=== PATIENT | male | born 1960 | race Two or more races ===

== ENCOUNTER 2019-02-03 07:14 | Day surgery (SDC) | payer OTHER ==
--- NOTE | 2019-02-01 22:09 | Pre-Procedure Note/Attestation ---
Pre-Procedure Note/Attestation Complete Prior to Procedure Planned Procedure: not applicable Procedure Narrative: Closed reduction nasal fracture Indications for Procedure Pre-Operative Diagnosis: Nasal fracture 01/27/19 when he fell off treadmill while at work. Attestation I attest that I discussed the nature of the procedure; its benefits; risks and complications; and alternatives (and the risks and benefits of such alternatives ), prior to the procedure, with the patient (or the patient's legal manufacturers representative). I attest that, if there was a reasonable possibility of needing a blood transfusion, the patient (or the patient's legal manufacturers representative) was given the [place] [facility] [employer] [facility] standardized written summary, pursuant to the Carmine Okay Blood Safety Act ([place] Health and Safety Code # 1645, as amended). I attest that I re-evaluated the patient just prior to the surgery and that there has been no change in the patient's H&P. Dejon Abdul MD Feb 01, 2019 22:09
--- NOTE | 2019-02-01 22:11 | Brief Operative Note ---
Immediate Post Operative Note Operative Note Chief Complaint: Acute nasal fracture Pre-op Diagnosis: Nasal fracture 01/27/19 when he fell off treadmill while at work. Procedure: Closed reduction nasal fracture Post-op Diagnosis: same as pre-op Surgeon: Dejon Abdul Chip Bin Conveyor Tender: none Additional Surgeons: none Anesthesiologist: Elpidio Anesthesia: MAC, moderate sedation Specimen: none Complications: none Condition: stable Fluids: D5LR Estimated Blood Loss: minimal Drains: none Packing: Stamberger nasal gel Implant(s) used?: No Dejon Abdul MD Feb 01, 2019 22:11
--- NOTE | 2019-02-01 22:21 | Discharge Instructions ---
Discharge Instructions Discharge Instructions Follow up with: 02/10/19 Diet: regular Resume Normal Activity?: No Activity: light activity Pneumonia Vaccine: pt refused vaccine Influenza Vaccine (Aug to Jan): pt refused vaccine Follow Up Orders Pt has printed pre op and post op instructions that we reviewed at his last visit and I gave to him. He also has his post op meds-AMox and [employer]. Return to Work/School on: Feb 17, 2019 Special Instructions ice to nose x 48 hours For Surgical Patients Dressing Care: may change For Congestive Heart Failure Reminder Report to your physician any weight gain of 5 pounds or more in one week. Dejon Abdul MD Feb 01, 2019 22:21
--- NOTE | 2019-02-01 22:45 | History and Physical ---
History & Physical (DB) History & Physical History & Physical Chief Complaint: Acute nasal fracture secondary to falling off treadmill at work. Reason for Hospitalization: outpt. surgery under IV sedation for a closed reduction of nasal fracture. History obtained from: Chart and Patient HPI: is a 58 year old male who presents with the above noted nasal fracture . 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 Smoking status: never Smokeless tobacco: never Alcohol use: social lite Drug use:none Family History: unremarkable Allergies: NKDA Medications:none Review of Symptoms: General ROS: no weight loss or fever Psychological ROS: no depression or mood changes, no memory loss Ophthalmic ROS: no visual changes or eye irritation ENT ROS: no nasal congestion, hearing loss, dizziness, DOES HAVE NASAL DEFORMITY CONSISTENT WITH DOI-SIDE OF NOSE CAVED N. Allergy and Immunology ROS: no allergic symptoms or urticaria Hematological and Lymphatic ROS: no swollen glands, unusual bleeding or bruising Endocrine ROS: no polyuria, polydipsia, weight changes, temperature intolerance Respiratory ROS: no cough, shortness of breath, or wheezing Cardiovascular ROS: no chest pain or dyspnea on exertion Gastrointestinal ROS: no abdominal pain, change in bowel habits, or black or bloody stools Musculoskeletal ROS: no myalgias or arthralgias Neurological ROS: no TIA or stroke symptoms Dermatological ROS: no new or changing skin lesions, rashes or pruritis Physical Exam Vitals: Ht-70 inches, Wt-170 lbs, BP 120/80, HR 70, RR 12 General appearance: alert, cooperative, no distress, appears stated age Head: Normocephalic, without obvious abnormality, atraumatic Eyes: conjunctivae/corneas clear. PERRL, EOM's intact. Nose: DOES HAVE NASAL DEFORMITY CONSISTENT WITH DOI-SIDE OF NOSE CAVED N. Throat: Lips, mucosa, and tongue normal. Teeth and gums normal Neck: supple, symmetrical, trachea midline, no adenopathy, thyroid: not enlarged, symmetric, no tenderness/mass/nodules, no carotid bruit and no JVD Lungs: clear to auscultation bilaterally Heart: regular rate and rhythm, S1, S2 normal, no murmur, click, rub or gallop Abdomen: soft, non-tender. Bowel sounds normal. No masses, no organomegaly Extremities: extremities normal, atraumatic, no cyanosis or edema Pulses: 2+ and symmetric Skin: Skin color, texture, turgor normal. No rashes or lesions Neurologic: Grossly normal Laboratories: none Estimated:5-10 minutes surgeon time Assessment/Problem List: Acute closed nasal fracture consistent with DOI. Plan:Closed reduction nasal fracture under IV sedation. DVT Prophylaxis: scd Code status: full Disposition: Once the patient is stable to leave the hospital, I anticipate the patient will likely be discharged to the following environment I spent 70 minutes on this patient's case, and minutes was dedicated to counseling and/or care coordination. Case was discussed with Time of note may not reflect time of encounter. Dejon Abdul MD Feb 01, 2019 22:45
[~2019-02-03] VITALS: Ht 177.8 cm; Wt 79.4 kg
[2019-02-03] VITALS (10 sets, daily range): BP systolic 120–141; BP diastolic 75–96
[2019-02-03] MEDS ORDERED: ceFAZolin sod 1 GM in D5W 55 ML IV ONE (07:15)
[2019-02-03] MEDS ORDERED: Dexamethasone 4mg/ml vial IVP ONE (07:30)
[2019-02-03] MEDS ORDERED: PRILOSEC OTC20 MG ORAL (07:37)
[2019-02-03] MEDS ORDERED: CHOLESTYRAMINE P4 GM ORAL (07:37)
[2019-02-03] MEDS ORDERED: fentaNYL 100 mcg/2 mL IV ONE (08:54)
[2019-02-03] MEDS ORDERED: Lidocaine 1% MPF 10mg/ml 5ml ONE (08:59)
[2019-02-03] MEDS ORDERED: Sterile Water Irrig 1000ml IRRIG ONE (09:00)
[2019-02-03] MEDS ORDERED: LR 1000ml ONE (09:00)
[2019-02-03] MEDS ORDERED: NS Irrig 1000ml ONE (09:00)
[2019-02-03] MEDS ORDERED: Bupivacaine w/Epi 0.5% 30ml Vial INJ ONE (09:01)
[2019-02-03] MEDS ORDERED: Cocaine HCl 4% 4ml vial TOPIC ONE (09:01)
[2019-02-03] MEDS ORDERED: Lidocaine 1% 10mg/ml/Epi 0.005mg/ml 30ml vial INJ ONE (09:01)
[2019-02-03] MEDS ORDERED: LR 1000ml 1,000 ML IVLG SCH (09:16)
--- NOTE | 2019-02-03 09:24 | Anethesia Preoperative Eval ---
Anesthesia Pre-op PMH/ROS General Date of Evaluation: Feb 03, 2019 Time of Evaluation: 08:52 Anesthesiologist: Adriel ASA Score: ASA 2 Mallampati Score Class I : Soft palate, uvula, fauces, pillars visible Class II: Soft palate, uvula, fauces visible Class III: Soft palate, base of uvula visible Class IV: Only hard plate visible Mallampati Classification: Class II Surgeon: Franko Diagnosis: Nasla Fracture Surgical Procedure: Closed Reduction Nasal Fracture Anesthesia History: none Family History: no anesthesia problems Allergies: Coded Allergies: No Known Allergies (Unverified , 02/03/19) Medications: see eMAR Patient NPO?: Yes Past Medical History Gastrointestinal/Genitourinary: Reports: GERD, other - Crohns Disease, Prostate CA PSxH Narrative: Colon Resection, Prostatectomy, R Hand, R knee Sx, Cervical SX Anesthesia Pre-op Phys. Exam Physician Exam Last Vital Signs Date Time Temp Pulse Resp B/P (MAP) Pulse Ox O2 Delivery O2 Flow Rate FiO2 02/03/19 07:38 97.0 47 18 120/75 100 Room Air Constitutional: NAD Neurologic: CN 2-12 intact Cardiovascular: RRR Respiratory: CTA Gastrointestinal: S/NT/ND Airway Exam Mallampati Score: Class II MO: full ROM: full Teeth: missing, intact Anesthesia Pre-op A/P Risk Assessment & Plan Assessment: ASA 2 Plan: GA Status Change Before Surgery: No Pre-Antibiotics Dru Gram Ancef IV Given Within 1 Hr of Incision: Yes Time Given: 09:01 Hammad Morel MD Feb 03, 2019 09:24
--- NOTE | 2019-02-03 09:25 | 48 Hour Post Anesthesia Eval ---
Post Anesthesia Evaluation Procedure: Closed Reduction Nasal Fracture Date of Evaluation: Feb 03, 2019 Time of Evaluation: 11:53 Blood Pressure Systolic: 118 0: 72 Pulse Rate: 62 Respiratory Rate: 18 Temperature (Fahrenheit): 98.2 O2 Sat by Pulse Oximetry: 100 Airway: patent Nausea: No Vomiting: No Pain Intensity: 2 Hydration Status: adequate Cardiopulmonary Status: Stable Mental Status/LOC: patient returned to baseline Follow-up Care/Observations: 0 Post-Anesthesia Complications: 0 Follow-up care needed: ready to discharge Hammad Morel MD Feb 03, 2019 09:25
--- NOTE | 2019-02-03 09:25 | Immediate Post-Op Evaluation ---
Immediate Post-Op Evalulation Immediate Post-Op Evalulation Procedure: Closed Reduction Nasal Fracture Date of Evaluation: Feb 03, 2019 Time of Evaluation: 09:45 IV Fluids: 500 LR Blood Products: 0 Estimated Blood Loss: 10 Urinary Output: 0 Blood Pressure Systolic: 133 Blood Pressure Diastolic: 85 Pulse Rate: 59 Respiratory Rate: 16 O2 Sat by Pulse Oximetry: 100 Temperature (Fahrenheit): 98 Pain Score (1-10): 2 Nausea: No Vomiting: No Complications 0 Patient Status: awake, patent, none Hydration Status: adequate Dru Gram Ancef IV Given Within 1 Hr of Incision: Yes Time Given: 09:01 Hammad Morel MD Feb 03, 2019 09:25
[2019-02-03] MEDS ORDERED: fentaNYL 100 mcg/2 mL IV PRN (09:30)
[2019-02-03] MEDS ORDERED: Atropine Sulfate 0.4mg/ml inj IVP PRN (09:30)
[2019-02-03] MEDS ORDERED: Hydromorphone 0.5mg/0.5ml inj IVP PRN (09:30)
[2019-02-03] MEDS ORDERED: Ketorolac 30mg Inj IV PRN ×2 (09:30)
[2019-02-03] MEDS ORDERED: LORazepam Inj 2mg/ml 1ml IV PRN (09:30)
[2019-02-03] MEDS ORDERED: Metoclopramide 10mg/2ml Inj IVP PRN ×2 (09:30)
[2019-02-03] MEDS ORDERED: DiphenhydrAMINE 50mg/ml Inj IVP PRN (09:30)
[2019-02-03] MEDS ORDERED: HYDROmorphone 1mg/ml Carpuject SUBQ PRN (09:30)
[2019-02-03] MEDS ORDERED: Midazolam 2mg/2ml Inj IVP PRN (09:30)
[2019-02-03] MEDS ORDERED: HYDROcodone/Acetamin 7.5/325 tab ORAL PRN (09:30)
[2019-02-03] MEDS ORDERED: Meperidine 50mg/ml Inj(FOR RIGORS ONLY) IVP PRN (09:30)
[2019-02-03] MEDS ORDERED: oxyCODONE HCL/Acetaminophen 5/325mg ORAL PRN (09:30)
[2019-02-03] MEDS ORDERED: HYDROcodone/Acetamin 5/325 tab ORAL PRN ×2 (09:30)
--- NOTE | 2019-02-03 16:45 | Operative Note - Dictated ---
DATE OF OPERATION: 02/03/2019 SURGEON: Dejon Abdul M.D. [facility] KAY STITCHER: None. ANESTHESIOLOGIST: Hammad Morel M.D. ANESTHESIA: IV sedation with 5 mL of 1% lidocaine, 1000 epinephrine 50:50 with 0.5% Marcaine with 1:200,000 epinephrine. INDICATION FOR SURGERY: The patient broke his nose about a week ago. He is here for close reduction nasal fracture. He is depressed on the left mid nose and convex on the right mid nose. PREOPERATIVE DIAGNOSIS: The patient broke his nose about a week ago. He is here for close reduction nasal fracture. He is depressed on the left mid nose and convex on the right mid nose. POSTOPERATIVE DIAGNOSIS: The patient broke his nose about a week ago. He is here for close reduction nasal fracture. He is depressed on the left mid nose and convex on the right mid nose. FINDINGS: The patient broke his nose about a week ago. He is here for close reduction nasal fracture. He is depressed on the left mid nose and convex on the right mid nose. PROCEDURE: Closed reduction nasal fracture. TECHNIQUE: The patient was prepped and draped in the usual manner. The IV sedation after it. A time-out was then performed. All agreed as to the equipment and the procedure to be done. I have placed a butter knife in the left nostril, pushed out the fracture, it was depressed on the left side popping it back into place. On the right side, I used a Dean forceps pulling the nose down and then placing the upper lateral cartilage back into its normal position. Then, both sides were in good position. Tape and stent was placed over the nose. Staberger nasal gel 1 syringe was divided between the two nostrils. Mustache dressing placed. Sponge and needle count correct. All agreed in the room. ESTIMATED BLOOD LOSS: 10 mL. COMPLICATIONS: None. DRAINS: None. Dejon Abdul M.D. DR: REI JOB#: [id number] CC:
== END 2019-02-03 11:25 | disposition home or self-care (01) ==
LOC: SUR 07:14
DX: S02.2XXA Fracture of nasal bones, initial encounter for closed fracture (principal); Z85.46 Personal history of malignant neoplasm of prostate; K21.9 Gastro-esophageal reflux disease without esophagitis; K50.90 Crohn's disease, unspecified, without complications; Z90.79 Acquired absence of other genital organ(s); X58.XXXA Exposure to other specified factors, initial encounter; Y92.9 Unspecified place or not applicable
CPT/HCPCS: 21315; J0690; J2250; J3010; 94003; 94150